=== PATIENT | male | born 1960 | race Caucasian/White ===

== ENCOUNTER 2018-05-17 12:50 | Day surgery (SDC) | payer OTHER, BC ==
[2018-05-17] MEDS ORDERED: DIPHENHYDRAMINE 50 MG INJ IV (16:30)
[2018-05-17] MEDS ORDERED: FENTAnyl 50 MCG/ML VIAL IV (16:30)
[2018-05-17] MEDS ORDERED: METOCLOPRAMIDE 10 MG INJ IV (16:30)
[2018-05-17] MEDS ORDERED: MEPERIDINE 25 MG INJ IV (16:30)
[2018-05-17] MEDS ORDERED: HYDROmorphONE 1 MG/5 ML IV SYRINGE IV (16:30)
[2018-05-17] MEDS ORDERED: POVIDONE IODINE 10% 28.4 GM OINT ×2 (16:31→18:41)
[2018-05-17] MEDS ORDERED: ROPIVACAINE 0.5 % 30 ML VIAL ×2 (16:31→18:40)
[2018-05-17] MEDS ORDERED: MIDAZOLAM 1 MG/ML 2 ML INJ (16:43)
[2018-05-17] MEDS: POLYMYXIN/BACITRACIN 1L IRRIG (17:18)
[2018-05-17] MEDS ORDERED: POLYMYXIN/BACITRACIN 1L IRRIG (18:37)
[2018-05-17] MEDS ORDERED: VANCOMYCIN 1 GM INJ (18:38)
[2018-05-17] MEDS ORDERED: LIDOCAINE 2% (SDV) 5 ML INJ (18:46)
[2018-05-17] MEDS ORDERED: CEFAZOLIN 1 GM INJ (18:46)
[2018-05-17] MEDS ORDERED: PROPOFOL 20 ML (18:46)
[2018-05-17] MEDS ORDERED: ONDANSETRON 4 MG INJ (18:47)
[2018-05-17] MEDS ORDERED: SOD CHLORIDE 0.9% 1,000 ML IV (19:10)
[2018-05-17] MEDS: ONDANSETRON 4 MG INJ IV (19:28)
[2018-05-17] MEDS: HYDROmorphONE 1 MG/5 ML IV SYRINGE IV ×2 (19:29→19:58)
[2018-05-17] MEDS ORDERED: morphine 2 MG INJ IV (19:30)
[2018-05-17] MEDS ORDERED: ONDANSETRON 4 MG INJ IV (19:30)
[2018-05-17] MEDS ORDERED: OXYCODONE/ACETAMINOPHEN (5/325) TAB PO (19:30)
[2018-05-17] MEDS: OXYCODONE/ACETAMINOPHEN (5/325) TAB PO (20:33)
== END 2018-05-17 20:58 | disposition home or self-care (01) ==
LOC: SDS 12:50
DX: Z47.2 Encounter for removal of internal fixation device (principal); M25.571 Pain in right ankle and joints of right foot; M24.671 Ankylosis, right ankle
CPT/HCPCS: 20680; 73620; 87070; 87075; 87102; 87116